=== PATIENT | male | born 1965 | race Caucasian/White ===

== ENCOUNTER → 2020-05-29 | Outpatient (CLI) | payer MEDICAID, OTHER ==
[~2020-05-29] MED LIST: META0.52 PO; VITA50TA47 PO; VITATAB73 PO
== END ==
LOC: M LABSMTC 12:12
PROVIDERS: ATTEND Anesthesiology
DX: Z01.812 Encounter for preprocedural laboratory examination (principal); Z20.822 Contact with and (suspected) exposure to COVID-19

== ENCOUNTER 2020-06-03 09:04 | Day surgery (SDC) | payer OTHER ==
[~2020-06-03] VITALS: Ht 175.3 cm; Wt 115.2 kg
[~2020-06-03 09:04] MED LIST changes: +NS 1,000 ML IV ONE
[2020-06-03] MEDS ORDERED: MIDAZOLAM INJ 2MG/2ML VIAL (J2250 PER 1MG) As Ordered ONE (10:08)
--- NOTE | 2020-06-03 10:22 | ROOR ---
Patient Name: Prasad Saunders Procedure Date: 06/03/2020 10:06 AM Date of : 1965 Age: 54 Room: [facility] Gender: Male Note Status: Finalized Procedure: Upper Endoscopy + Biopsies Indications: Epigastric abdominal pain, Nausea with vomiting Providers: Wu Whitley MD Referring MD: [facility], Admin. Requesting Provider: Medicines: Monitored Anesthesia Care Complications: No immediate complications. Procedure: Pre-Anesthesia Assessment: - The heart rate, respiratory rate, oxygen saturations, blood pressure, adequacy of pulmonary ventilation, and response to care were monitored throughout the procedure. The Endoscope was introduced through the mouth, and advanced to the second part of duodenum. The upper GI endoscopy was accomplished without difficulty. The patient tolerated the procedure well. Findings: The Z-line was irregular and was found 40 cm from the incisors. Multiple biopsies were obtained with cold forceps for evaluation to rule out Fay's Esophagus randomly at the gastroesophageal junction. Diffuse mildly erythematous mucosa without bleeding was found in the entire examined stomach. Biopsies were taken with a cold forceps for Helicobacter pylori testing. The exam of the duodenum was otherwise normal. Impression: - Z-line irregular, 40 cm from the incisors. - Erythematous mucosa in the stomach. Biopsied. - Multiple biopsies were obtained at the gastroesophageal junction. - The examination was otherwise normal. Recommendation: - Patient has a contact number available for emergencies. The signs and symptoms of potential delayed complications were discussed with the patient. Return to normal activities tomorrow. Written discharge instructions were provided to the patient. - High fiber diet. - Discharge patient to home. - Follow an antireflux regimen. - Continue present medications. - Await pathology results. - Telephone GI clinic for pathology results in 1 week. - Return to referring physician. - The findings and recommendations were discussed with the patient. Procedure Code(s): --- Professional --- 47924, Esophagogastroduodenoscopy, flexible, transoral; with biopsy, single or multiple Diagnosis Code(s): --- Professional --- K22.8, Other specified diseases of esophagus K31.89, Other diseases of stomach and duodenum R10.13, Epigastric pain R11.2, Nausea with vomiting, unspecified CPT copyright 2019 [employer]. All rights reserved. The codes documented in this report are preliminary and upon instructional manager review may be revised to meet current compliance requirements. Wu Whitley MD Wu Whitley MD 06/03/2020 10:21:55 AM Electronically signed by Wu Whitley MD Number of Addenda: 0 Note Initiated On: 06/03/2020 10:06 AM Estimated Blood Loss: Estimated blood loss: none.
--- NOTE | 2020-06-03 10:50 | ROOR ---
Patient Name: Prasad Saunders Procedure Date: 06/03/2020 10:07 AM Date of : 1965 Age: 54 Room: [facility] Gender: Male Note Status: Finalized Procedure: Total Colonoscopy to Cecum + Cold Snare Polypectomy + Hemoclips Indications: Screening for colorectal malignant neoplasm Providers: Wu Whitley MD Referring MD: [facility] [place], Admin. Requesting Provider: Medicines: Monitored Anesthesia Care Complications: No immediate complications. Procedure: Pre-Anesthesia Assessment: - The heart rate, respiratory rate, oxygen saturations, blood pressure, adequacy of pulmonary ventilation, and response to care were monitored throughout the procedure. The Colonoscope was introduced through the anus and advanced to the cecum, identified by appendiceal orifice and ileocecal valve. The colonoscopy was performed without difficulty. The patient tolerated the procedure well. The quality of the bowel preparation was excellent. Findings: The perianal and digital rectal examinations were normal. Non-bleeding internal hemorrhoids were found during retroflexion. The hemorrhoids were small and Grade I (internal hemorrhoids that do not prolapse). Scattered small-mouthed diverticula were found in the recto-sigmoid colon, sigmoid colon and descending colon. Multiple sessile polyps were found at 60 cm proximal to the anus. The polyps were small in size. These polyps were removed with a cold snare. Resection and retrieval were complete. Multiple sessile polyps were found in the recto-sigmoid colon. The polyps were small in size. These polyps were removed with a cold snare. Resection and retrieval were complete. To prevent bleeding after the polypectomy, two hemostatic clips were successfully placed (MR conditional). There was no bleeding at the end of the procedure. The exam was otherwise without abnormality on direct and retroflexion views. Impression: - Non-bleeding internal hemorrhoids. - Diverticulosis in the recto-sigmoid colon, in the sigmoid colon and in the descending colon. - Multiple small polyps at 60 cm proximal to the anus, removed with a cold snare. Resected and retrieved. - Multiple small polyps at the recto-sigmoid colon, removed with a cold snare. Resected and retrieved. Clips (MR conditional) were placed. - The examination was otherwise normal on direct and retroflexion views. - The exam was otherwise normal to the cecum. Recommendation: - Patient has a contact number available for emergencies. The signs and symptoms of potential delayed complications were discussed with the patient. Return to normal activities tomorrow. Written discharge instructions were provided to the patient. - High fiber diet. - Discharge patient to home. - Continue present medications. - Await pathology results. - Telephone GI clinic for pathology results in 1 week. - Repeat colonoscopy for surveillance based on pathology results. - Return to referring physician. - The findings and recommendations were discussed with the patient. Procedure Code(s): --- Professional --- 12970, Colonoscopy, flexible; with removal of tumor(s), polyp(s), or other lesion(s) by snare technique Diagnosis Code(s): --- Professional --- Z12.11, Encounter for screening for malignant neoplasm of colon K64.0, First degree hemorrhoids K63.5, Polyp of colon K57.30, Diverticulosis of large intestine without perforation or abscess without bleeding CPT copyright 2019 [employer]. All rights reserved. The codes documented in this report are preliminary and upon maint mechanic review may be revised to meet current compliance requirements. Wu Whitley MD Wu Whitley MD 06/03/2020 10:49:51 AM Electronically signed by Wu Whitley MD Number of Addenda: 0 Note Initiated On: 06/03/2020 10:07 AM Estimated Blood Loss: Estimated blood loss: none.
[2020-06-03] MEDS ORDERED: propofoL 200 MG/20 ML VIAL As Ordered ONE ×2 (10:58→10:59)
[2020-06-03] MEDS ORDERED: LIDOCAINE 2% 100MG/5ML SDV (FOR ANES.) As Ordered ONE (10:59)
[2020-06-03 11:06] VITALS: BP 161/93
== END 2020-06-03 11:08 | disposition home or self-care (01) ==
LOC: M OPP 09:04
PROVIDERS: ATTEND Internal Medicine Gastroenterology
DX: Z12.11 Encounter for screening for malignant neoplasm of colon (principal); K63.5 Polyp of colon; K64.0 First degree hemorrhoids; K57.30 Diverticulosis of large intestine without perforation or abscess without bleeding; K22.8 Other specified diseases of esophagus; K31.89 Other diseases of stomach and duodenum; R10.13 Epigastric pain; R11.2 Nausea with vomiting, unspecified; F17.210 Nicotine dependence, cigarettes, uncomplicated
CPT/HCPCS: 43239; 45385; 88305; 88342; J2250

== ENCOUNTER 2020-08-11 21:30 | Emergency (ER) | payer OTHER ==
[~2020-08-11 21:30] MED LIST changes: -NS 1,000 ML IV ONE
[2020-08-11 21:44] VITALS: BP 149/86
[2020-08-11] MEDS ORDERED: METHOCARBAMOL 1,000 MG/10 ML VIAL (J2800) IV ONE (21:55)
[2020-08-11] MEDS ORDERED: KETOROLAC 30 MG/ML 1ML VIAL IV ONE (21:55)
[2020-08-11 22:30] LABS: BASO # 0.1 10^3/uL (0.0-0.2); EOS # 0.2 10^3/uL (0.0-0.5); EOS % 1.8 % (0.0-3.0); HEMATOCRIT 41.4 % (42.0-52.0); HEMOGLOBIN 14.6 g/dl (13.5-17.5); LYMPH % 27.6 % (24.0-44.0); MEAN CORPUSCULAR HEMOGLOBIN 35.7 pg (27.0-33.0); MEAN CORPUSCULAR HGB CONC 35.3 g/dl (32.0-36.5); MEAN CORPUSCULAR VOLUME 101.2 fl (80.0-96.0); MONO # 1.1 10^3/uL (0.0-0.8); MONO % 10.1 % (2.0-8.0); NEUTROPHILS # 6.5 10^3/uL (1.5-8.5); NEUTROPHILS % 59.2 % (36.0-66.0); RED BLOOD COUNT 4.09 10^6/uL (4.30-6.10)
[2020-08-11 22:38] LABS: PLATELET COUNT, AUTOMATED 90 10^3/uL (150-450)
[2020-08-11 23:07] LABS: BLOOD UREA NITROGEN 6 MG/DL (7-18); CALCIUM LEVEL 7.2 MG/DL (8.5-10.1); CARBON DIOXIDE LEVEL 26 MEQ/L (21-32); CHLORIDE LEVEL 109 MEQ/L (98-107); CREATININE FOR GFR 0.72 MG/DL (0.70-1.30); GLOMERULAR FILTRATION RATE > 60.0 (>56); GLUCOSE, FASTING 111 MG/DL (70-100); POTASSIUM SERUM 3.7 MEQ/L (3.5-5.1); SODIUM LEVEL 145 MEQ/L (136-145)
--- NOTE | 2020-08-11 23:45 | REPVR ---
PROCEDURE INFORMATION: Exam: CT Lumbar Spine Without Contrast Exam date and time: 08/11/2020 10:58 PM Age: 54 years old Clinical indication: Low back pain; Additional info: Pain, ? fall TECHNIQUE: Imaging protocol: Computed tomography images of the lumbar spine without contrast. Radiation optimization: All CT scans at this facility use at least one of these dose optimization techniques: automated exposure control; mA and/or kV adjustment per patient size (includes targeted exams where dose is matched to clinical indication); or iterative reconstruction. COMPARISON: No relevant prior studies available. FINDINGS: Vertebrae: Normal spinal curvature, vertebral body heights, and alignment. No spinal fracture or acute subluxation. Discs/Spinal canal/Neural foramina: Mild diffuse degenerative disc space loss with small disc bulge/protrusions causing up to mild foraminal and spinal stenosis greatest at L3-S1. Liver: Enlarged low attenuating liver, evidence of hepatic steatosis. Kidneys and ureters: Benign 1.8 cm right renal cyst. Stomach and bowel: Abdominal free fluid and possible bowel wall thickening, correlate. Soft tissues: Unremarkable. IMPRESSION: 1. No acute vertebral fracture/subluxation. 2. Abdominal free fluid and possible bowel wall thickening, correlate. COMMENTS: Consistent with the [place] [employer]'s Incidental Findings Committee white paper (J Am Austin Radiol 2018): Any incidental renal lesion less than 1 cm or classified as too small to characterize, or any incidental cystic renal lesion characterized as simple-appearing, is likely benign. No follow-up imaging is recommended for these lesions per consensus recommendations based on imaging criteria. Electronically signed by: Gerald Dolan On 08/11/2020 23:45:01 PM
== END 2020-08-12 01:07 | disposition left against medical advice (07) ==
LOC: M ED 21:30
DX: M54.5 Low back pain (principal); F10.129 Alcohol abuse with intoxication, unspecified; Z53.9 Procedure and treatment not carried out, unspecified reason; F17.200 Nicotine dependence, unspecified, uncomplicated; R93.2 Abnormal findings on diagnostic imaging of liver and biliary tract; R93.421 Abnormal radiologic findings on diagnostic imaging of right kidney
CPT/HCPCS: 72131; 80048; 82077; 85025; 85049; 85055; 96374; 96375; 99283; J1885; J2800

== ENCOUNTER → 2020-10-16 | Outpatient (CLI) | payer OTHER ==
--- NOTE | 2020-10-21 15:22 | SLEEPCENT ---
DATE: 10/16/2020 ORDERED BY: Adams Jaimes MD Nocturnal polysomnography was performed for evaluation of sleep physiology. Eight hours and 6 minutes of data were reviewed. There were 230.5 minutes of sleep identified. Sleep latency was very prolonged at 167.5 minutes. REM sleep latency was normal at 62.5 minutes. Sleep architecture showed fragmentation but there were three REM cycles noted. Overall sleep efficiency was 48.3%. The electrocardiogram showed a sinus rhythm with an average heart rate of 90 beats per minute. Rate ranged 70-100. EEG showed normal waveforms for wake and sleep. There were 60 respiratory events identified of 10 seconds in duration or greater for an apnea-hypopnea index of 15.6. The events were obstructive, not exclusive to sleep stage seen in the supine posture. Arousals from respiratory events occurred 8.9 times per hour, and oxygen desaturations were seen into the low 80s. There was also some activity in the limb leads but no trains of events. Limb movement arousal index was only 4.2. Snoring was noted over most of the study. IMPRESSION: Obstructive sleep apnea syndrome (G47.33). Apnea-hypopnea index 15.6. RECOMMENDATION: The patient should be encouraged to return to the [facility] for pressure therapy. In the interim, alcohol and sedative avoidance should be practiced and caution exercised during the operation of motor vehicles.
== END ==
LOC: M SLEEP 20:00
PROVIDERS: ATTEND Family Medicine
DX: G47.33 Obstructive sleep apnea (adult) (pediatric) (principal)

== ENCOUNTER 2021-12-03 12:21 | Emergency (ER) | payer OTHER ==
[~2021-12-03] VITALS: Ht 177.8 cm; Wt 100.0 kg
[2021-12-03] MEDS ORDERED: LORazepam 2 MG/ML VIAL IV STA ×3 (13:02→21:04)
[2021-12-03] MEDS ORDERED: PANTOPRAZOLE 40MG VIAL IV ONE (13:05)
[2021-12-03] MEDS ORDERED: NS 1,000 ML IV ONE ×3 (13:05→19:45)
[2021-12-03 15:29] LABS: INR 1.17; PROTHROMBIN TIME 15.3 SECONDS (12.7-14.5)
[2021-12-03 15:30] LABS: PARTIAL THROMBOPLASTIN TIME 23.4 SECONDS (25.9-37.0)
[2021-12-03 15:51] LABS: ALBUMIN 2.9 GM/DL (3.2-5.2); ALT/SGPT 44 U/L (12-78); BILIRUBIN,DIRECT 0.6 MG/DL (0.0-0.2); BILIRUBIN,TOTAL 4.4 MG/DL (0.2-1.0); BLOOD UREA NITROGEN 31 MG/DL (7-18); CALCIUM LEVEL 8.4 MG/DL (8.5-10.1); CARBON DIOXIDE LEVEL 24 MEQ/L (21-32); CHLORIDE LEVEL 106 MEQ/L (98-107); ETHYL ALCOHOL (ETHANOL) 0.004 % (0.000-0.010); GLOMERULAR FILTRATION RATE > 60.0 (>56); GLUCOSE, FASTING 117 MG/DL (70-100); LIPASE 86 U/L (73-393); POTASSIUM SERUM 4.1 MEQ/L (3.5-5.1); SODIUM LEVEL 137 MEQ/L (136-145); TOTAL PROTEIN 6.5 GM/DL (6.4-8.2)
[2021-12-03 16:55] LABS: BASO % 0.3 % (0.0-1.0); HEMOGLOBIN 9.2 g/dl (13.5-17.5); LYMPH # 1.8 10^3/uL (1.5-5.0); LYMPH % 12.2 % (24.0-44.0); MEAN CORPUSCULAR HEMOGLOBIN 33.5 pg (27.0-33.0); MEAN CORPUSCULAR HGB CONC 34.1 g/dl (32.0-36.5); MEAN CORPUSCULAR VOLUME 98.2 fl (80.0-96.0); MONO % 6.7 % (2.0-8.0); NEUTROPHILS # 11.5 10^3/uL (1.5-8.5); NEUTROPHILS % 80.2 % (36.0-66.0); RED BLOOD COUNT 2.75 10^6/uL (4.30-6.10); WHITE BLOOD COUNT 14.4 10^3/uL (4.0-10.0)
[2021-12-03 17:10] LABS: PLATELET COUNT, AUTOMATED 88 10^3/uL (150-450)
[2021-12-03 19:43] LABS: RSV AMPLIFICATION NEGATIVE (NEGATIVE)
[2021-12-03 21:17] VITALS: BP 122/63
== END 2021-12-03 21:25 | disposition short-term general hospital (02) ==
LOC: M ED 12:21 → EDBD 12:21 → M ED 21:25
DX: K92.2 Gastrointestinal hemorrhage, unspecified (principal); K74.60 Unspecified cirrhosis of liver; F17.200 Nicotine dependence, unspecified, uncomplicated
CPT/HCPCS: 36415; 80047; 80048; 80076; 82077; 83605; 83690; 85025; 85049; 85055; 85610; 85730; 86850; 86900; 86901; 87631; 93005; 93041; 96374; 96375; 96376; 99284; C9113; J2060